=== PATIENT | female | born 1985 | race Caucasian/White ===

== ENCOUNTER 2024-08-19 16:12 | Inpatient (IN) | payer OTHER, SELFPAY ==
[2024-08-19] VITALS (13 sets, daily range): BP systolic 102–145; BP diastolic 72–107; BMI 33.3
--- NOTE | 2024-08-19 10:57 | ED.GENMED ---
ED Provider Triage
<Jed Sharma PA-C - Last Filed: 08/19/24 10:58>
-
Patient seen by provider in Triage?: Seen in Triage
Attestation: A medical screening examination has been initiated by a qualified medical provider. Based on the assessment performed at this time, it has been determined that an emergent medical condition may exist and the patient has been informed
that further medical evaluation and possible additional diagnostic testing may be needed.
HPI: 38-year-old female with known gallstones presents with 5 days worth of right upper quadrant pain rating to the back. This has been fairly constant over 5 days. No vomiting at triage. Vital signs are stable. Routine labs including lipase
ordered. Ultrasound ordered
GENERAL: Alert , in no apparent distress
EYE: No visual abnormalities.
NECK: Trachea midline
ENT: No visible abnormalities.
LUNGS: No acute respiratory distress
NEUROLOGICAL: Alert and oriented
SKIN: Skin intact. No visible changes.
MUSCULOSKELETAL: Moving extremities normally
PSYCH: Normal and appropriate interaction.
This is a medical evaluation conducted in person to initiate diagnostic evaluation and provide initial therapeutics. Please see further documentation by the treating clinician.
History of Present Illness
<Jed Sharma PA-C - Last Filed: 08/19/24 10:58>
General
Chief Complaint: Abdominal Pain
Time Seen by Provider: 08/19/24 13:05
<Bipin Luciano PA-C - Last Filed: 08/19/24 15:21>
General
Source: patient
History of Present Illness
History of Present Illness:
38-year-old female presenting to the emergency department for evaluation of waxing and waning right upper quadrant abdominal pain for the last 5 days, since 9 30 p.m. last night pain has been constant, sharp, and accompanied with mild nausea.
Patient does have a known history of gallstones and has been managing symptoms with low-fat diet. She does note for dinner last night she had some shrimp dumplings. She denies any fevers, chills, rigors. Pain currently 8 out of 10 and radiating
towards the right scapular region.
Past History
<Jed Sharma PA-C - Last Filed: 08/19/24 10:58>
Past History
ED Past Medical History: None
ED Past Surgical History: None
Social History
Tobacco: Non-smoker
Alcohol: None
Drug: None
Personal:
Living: with family
Employment: Employed
Family History
Family History: Other (Noncontributory)
Review of Systems
<Bipin Luciano PA-C - Last Filed: 08/19/24 15:21>
Review of Systems
All Other Systems: ROS reviewed and negative except as documented in HPI and ROS
Phy Exam
<Bipin Luciano PA-C - Last Filed: 08/19/24 15:21>
Physical Exam
Physical Exam:
GENERAL: Alert , in no apparent distress
EYE: Mildly icteric sclera
HEAD: NCAT
ENT: o/p clr, mmm.
CARDIAC: Regular rate and rhythm .
LUNGS: Clear breath sounds bilaterally, no acute respiratory distress, no wheezes/rales/rhonchi
ABDOMEN: Soft, RUQ tenderness to palpation, no r/g, no cvat, positive Herrmann sign, no tenderness at McBurney's point
NEUROLOGICAL: Alert and oriented
SKIN: Warm and dry, skin intact.
MUSCULOSKELETAL: No edema, well perfused.
PSYCH: Normal and appropriate interaction.
Scores
<Bipin Luciano PA-C - Last Filed: 08/19/24 15:21>
Heart Failure Risk
Heart Failure Risk Score: Not Applicable
Heart Score for Chest Pain Patients
STEMI patient?: Not applicable
Withdrawal Assessment of Alcohol
Withdrawal Assessment Completed?: Not applicable
Course
<Jed Sharma PA-C - Last Filed: 08/19/24 10:58>
Orders/Labs/Results
Orders:
Orders
08/19/24 10:57
US Abdomen Complete/Upper Urgent
Comment:
Reason For Exam: ruq pain
08/19/24 10:58
Test Result ONCE
08/19/24 11:04
Complete Blood Count/With Diff Urgent
Comprehensive Metabolic Panel Urgent
HCG, Serum Qualitative Screen Urgent
Lipase Urgent
08/19/24 13:23
Morphine Sulfate 4 mg IV NOW STA
Ondansetron Injectable [Zofran] 4 mg IV NOW STA
08/19/24 14:35
Lorazepam [Ativan] 0.5 mg IV NOW STA
08/19/24 14:40
Admit/Transfer Patient As Directed
Co-Sign Provider:
Level of Care: Inpatient admission
Assign to:: Medical/Surgical
Physician / Group: Rhona Alvarez
Diagnosis: Acute cholecystitis, Common bile duct dilatation
Reason for Hospitalization: Acute cholecystitis
Common bile duct dilatation
Expected length of stay greater than two midnights?: Yes
ELOS- Estimated Length of Stay in days: 3
I certify the patient meets the requirements for IP care: Yes
Code Status As Directed
Resuscitation Status: Full Code
0.9% Sodium Chloride [Nss (Preservative Free)] 0.25 ml IV ONCE@1440 ONE
PRN Pain Medication Management As Directed
May give lesser potent ordered pain med per pt: Yes
preference::
Protocol:: Medication orders for pain may be administered in a
manner that supports deferring to patient preference
when the pt is:
- Requesting an ordered lesser potent pain medication.
Least to most potent pain medications are defined
as: acetaminophen < NSAID < tramadol < opioids
(morphine, oxycodone, hydromorphone).
- Requesting a lesser dose of the same medication IF
ORDERED.
- Requesting a less intrusive route of administration
if both routes are prescribed by the provider (PO <
IV).
Abnormal Lab Results
08/19/24
11:04
WBC 4.6 L 10^3/uL
(4.8-10.8)
MCH 26.4 L pg
(27.0-31.0)
MCHC 32.6 L g/dL
(33.0-37.0)
MPV 11.2 H fL
(7.4-10.4)
Absolute Lymphs (auto) 1.1 L 10^3/uL
(1.2-3.4)
Monocytes % 9.6 H %
(1.7-9.3)
Glucose 110 H mg/dl
(70-99)
Total Bilirubin 4.2 H mg/dl
(0.2-1.3)
AST 141 H U/L
(14-36)
ALT 719 H* U/L
(0-35)
Alkaline Phosphatase 227 H U/L
(38-126)
08/19/24 11:04
08/19/24 11:04
Vital Signs
Initial and Last Documented VS:
Initial Vital Signs
Temp Pulse Resp BP Pulse Ox
97.8 F 98 18 141/107 98
08/19/24 10:54 08/19/24 10:54 08/19/24 10:54 08/19/24 10:54 08/19/24 10:54
Last Documented Vital Signs
Temp Pulse Resp BP Pulse Ox
97.8 F 86 16 124/83 98
08/19/24 10:54 08/19/24 12:54 08/19/24 12:54 08/19/24 12:54 08/19/24 12:54
<Bipin Luciano PA-C - Last Filed: 08/19/24 15:21>
Orders/Labs/Results
Orders:
Orders
08/19/24 10:57
US Abdomen Complete/Upper Urgent
Comment:
Reason For Exam: ruq pain
08/19/24 10:58
Test Result ONCE
08/19/24 11:04
Complete Blood Count/With Diff Urgent
Comprehensive Metabolic Panel Urgent
HCG, Serum Qualitative Screen Urgent
Lipase Urgent
08/19/24 13:23
Morphine Sulfate 4 mg IV NOW STA
Ondansetron Injectable [Zofran] 4 mg IV NOW STA
08/19/24 14:35
Lorazepam [Ativan] 0.5 mg IV NOW STA
08/19/24 14:40
Admit/Transfer Patient As Directed
Co-Sign Provider:
Level of Care: Inpatient admission
Assign to:: Medical/Surgical
Physician / Group: Rhona Alvarez
Diagnosis: Acute cholecystitis, Common bile duct dilatation
Reason for Hospitalization: Acute cholecystitis
Common bile duct dilatation
Expected length of stay greater than two midnights?: Yes
ELOS- Estimated Length of Stay in days: 3
I certify the patient meets the requirements for IP care: Yes
Code Status As Directed
Resuscitation Status: Full Code
0.9% Sodium Chloride [Nss (Preservative Free)] 0.25 ml IV ONCE@1440 ONE
PRN Pain Medication Management As Directed
May give lesser potent ordered pain med per pt: Yes
preference::
Protocol:: Medication orders for pain may be administered in a
manner that supports deferring to patient preference
when the pt is:
- Requesting an ordered lesser potent pain medication.
Least to most potent pain medications are defined
as: acetaminophen < NSAID < tramadol < opioids
(morphine, oxycodone, hydromorphone).
- Requesting a lesser dose of the same medication IF
ORDERED.
- Requesting a less intrusive route of administration
if both routes are prescribed by the provider (PO <
IV).
Abnormal Lab Results
08/19/24
11:04
WBC 4.6 L 10^3/uL
(4.8-10.8)
MCH 26.4 L pg
(27.0-31.0)
MCHC 32.6 L g/dL
(33.0-37.0)
MPV 11.2 H fL
(7.4-10.4)
Absolute Lymphs (auto) 1.1 L 10^3/uL
(1.2-3.4)
Monocytes % 9.6 H %
(1.7-9.3)
Glucose 110 H mg/dl
(70-99)
Total Bilirubin 4.2 H mg/dl
(0.2-1.3)
AST 141 H U/L
(14-36)
ALT 719 H* U/L
(0-35)
Alkaline Phosphatase 227 H U/L
(38-126)
08/19/24 11:04
08/19/24 11:04
Vital Signs
Initial and Last Documented VS:
Initial Vital Signs
Temp Pulse Resp BP Pulse Ox
97.8 F 98 18 141/107 98
08/19/24 10:54 08/19/24 10:54 08/19/24 10:54 08/19/24 10:54 08/19/24 10:54
Last Documented Vital Signs
Temp Pulse Resp BP Pulse Ox
97.8 F 86 16 124/83 98
08/19/24 10:54 08/19/24 12:54 08/19/24 12:54 08/19/24 12:54 08/19/24 12:54
<Bipin Luciano PA-C - Last Filed: 08/19/24 15:21>
MDM/Problems Addressed
Differential Diagnosis Includes:
Acute cholecystitis, pancreatitis, choledocholithiasis, ascending cholangitis, atypical ACS presentation we
MDM/Problems Addressed:
38-year-old female presenting to the ER for evaluation of waxing waning right upper quadrant abdominal pain for the last 5 days, symptoms constant since 9:30 PM last night. Labs and ultrasound imaging initially ordered in triage. Labs show a total
bilirubin of 4.2, AST of 141, ALT of 709, alkaline phosphatase 227. Patient's ultrasound shows cholelithiasis without evidence for acute cholecystitis. Mild dilatation of the common bile duct as well. I notified general surgery who requests that
GI be made aware as well as patient will likely need MRI of the abdomen. Hospitalist team to admit.
<Bipin Luciano PA-C - Last Filed: 08/19/24 15:21>
*Radiology
Radiology exam reviewed: radiology read reviewed
*Pulse Oximetry
Patient hypoxic: no
*Critical Care Note
Total Time (30-74mins, 75-104mins- exclusive of procedures): Not Applicable
<Bipin Luciano PA-C - Last Filed: 08/19/24 15:21>
Patient Management
Discussion with other providers: Hospitalist and Destination Coordinator
Escalation/DeEscalation of care consider admission/obs:
Hospitalist team to admit. GI and general surgery consult.
ED Attending Note
<Jed Sharma PA-C - Last Filed: 08/19/24 10:58>
-
Portions of this chart may have been created with voice recognition software.� Occasional wrong word or��sound alike� substitutions may have occurred due to the inherent limitations of voice recognition software.
Discharge Plan
Departure
Patient Disposition: Admit
Date of Disposition: 08/19/24
Time of Disposition: 13:31
Presentation/result/management discussed w/ accepting MD/DO: Hospitalist
Discharge Problem:
Acute cholecystitis, Common bile duct dilatation
Prescriptions:
No Action
No Current Medications
0
Interventions
Interventions:
*Risk Screen - Suicide Last Done: 08/19/24 10:54
*General Assessment Last Done: 08/19/24 10:54
*Neglect/Abuse Screening Last Done: 08/19/24 10:54
*ED COVID-19 Vaccine History Last Done: 08/19/24 13:36
BO-Miikkt-Kfcjigsryx Assessment Last Done: 08/19/24 13:36
Discharge Date and Time
Print Language: TAMAZIGHT
[2024-08-19 11:24] LABS: % Basophils 0.7 % (0-2); % Eosinophils 3.1 % (0-6); % Immature Granulocytes 0.4 % (0-0.5); % Lymphocytes 23.5 % (20.5-51.1); % Monocytes 9.6 % (1.7-9.3); % Neutrophils 62.7 % (42.2-75.2); Absolute Eosinophils 0.1 10^3/uL (0-0.7); Absolute Lymphocytes 1.1 10^3/uL (1.2-3.4); Absolute Monocytes 0.4 10^3/uL (0.1-0.6); Absolute Neutrophils 2.9 10^3/uL (1.4-6.5); Hemoglobin 12.7 g/dL (12.0-16.0); Mean Corp Hgb Conc. 32.6 g/dL (33.0-37.0); Mean Corpuscular Hgb 26.4 pg (27.0-31.0); Mean Corpuscular Volume 81.1 fL (81.0-99.0); Mean Platelet Volume 11.2 fL (7.4-10.4); Nucleated Red Blood Cells % 0 %; Platelet Count 255 10^3/uL (130-400); Red Blood Cell Count 4.81 10^6/uL (4.20-5.40); White Blood Cell Count 4.6 10^3/uL (4.8-10.8)
[2024-08-19 11:36] LABS: HCG, Serum Qualitative Screen Negative
[2024-08-19 11:43] LABS: ALT (SGPT) 719 U/L (0-35); AST (SGOT) 141 U/L (14-36); Albumin 4.6 g/dl (3.5-5.0); Alkaline Phosphatase 227 U/L (38-126); Blood Urea Nitrogen 8 mg/dl (7-17); Calcium 10.2 mg/dl (8.4-10.2); Carbon Dioxide 25 mmol/L (22-30); Chloride 102 mmol/L (98-107); Glucose 110 mg/dl (70-99); Lipase 130 U/L (23-300); Potassium 4.4 mmol/L (3.5-5.1); Sodium 135 mmol/L (135-145); Total Bilirubin 4.2 mg/dl (0.2-1.3); Total Protein 7.5 g/dl (6.3-8.2); eGFR > 60.00
[2024-08-19] MEDS: MORPHINE SULFATE 4 MG IV (13:32)
[2024-08-19] MEDS: ZOFRAN 4 MG IV ×2 (13:32→19:45)
--- NOTE | 2024-08-19 14:04 | CON.GI ---
Consultation
-
Date/Time Consultation Requested: 08/19/24
Date/Time Consultation Performed: 08/19/24
Requesting Provider: Dr. Alvarez
Performing Provider: Dr. Barton
Reason for Consultation: Elevated LFTs, RUQ abdominal pain
Medical History
Chief Complaint / HPI
Chief Complaint: RUQ Abdominal Pain
History of Present Illness:
Griselda Sanchez is a 38-year-old female with past medical history of symptomatic cholelithiasis who presents with 5 days of worsening right upper quadrant pain with radiation to her back. She endorses nausea, no vomiting. Labs on arrival shows
significant elevation in liver enzymes, total bilirubin 4.2, AST 141, ALT 719, alkaline phosphatase 227, lipase 130. Vital signs stable, she is afebrile without leukocytosis. Abdominal US shows dilated CBD of 10 mm, no sonographic evidence of
filling defect, physiologically distended gallbladder with fluid and multiple small calculi and biliary sludge in lumen, no GB wall thickening or pericholecystic fluid; negative murphys sign. Of note, she was seen in the ER with similar complaints
in May 2021, at which time abdominal ultrasound showed cholelithiasis without evidence of cholecystitis, biliary ductal dilatation or fatty liver, she had a mild elevation in ALT at that time of 41. She was seen by Dr. Romero who recommended
proceeding with cholecystectomy however patient decided to proceed with conservative management deferring surgery at that time. She reports about 5 similar episodes since that time, but never sought care as each episode typically resolved within an
hour. She reports having a prior EGD many years ago, thinks she had some gastritis, no prior colonoscopy. Family history significant for grandfather with colon cancer, grandmother with cirrhosis 2/2 hepatitis contracted via blood transfusion. No
NSAIDS or blood thinners. Reports former tobacco use-- 10 pack years, quit 17 years ago.
Abdominal US 08/19/24:
1. Cholelithiasis. No findings at sonography highly suspicious for acute cholecystitis.
2. Mild dilation of the common bile duct, indeterminate etiology.
3. Left nephrolithiasis with approximately 1.5 cm calculus at the left renal pelvis. No hydronephrosis.
Past Medical History
Past Medical History: Other (seasonal allergies, cholelithiasis, elevated liver enzymes)
Past Surgical History: None
Social History
Tobacco: Former Smoker (10 pack years, quit 17 years ago)
Alcohol: None
Drug: None
Personal:
Family History
Family History: Other (Mother and grandmother both had gallbladder issues requiring cholecystectomy )
Allergies / Home Medications
Allergy/AdvReac Type Severity Reaction Status Date / Time
clarithromycin [From Biaxin] Allergy Rash Verified 08/19/24 10:53
Penicillins Allergy Rash Verified 08/19/24 10:53
�Medication �Instructions �Recorded
Claritin-D 24 Hour 1 tab PO DAILY 05/01/17
levofloxacin 500 mg tablet 500 mg PO DAILY #3 tabs 05/02/17
metoclopramide HCl 5 mg tablet 5 mg PO AC nausea #10 tabs 05/02/17
omeprazole magnesium 20 mg 20 mg PO DAILY ##20 06/06/21
tablet,delayed release (Prilosec
OTC)
ondansetron 4 mg disintegrating 4 mg PO TIDPRN PRN nausea/vomiting 06/06/21
tablet #10 tabs
Review of Systems
-
History Source: Patient
Vital Signs
Temp Pulse Resp BP Pulse Ox
97.8 F 86 16 124/83 98
08/19/24 10:54 08/19/24 12:54 08/19/24 12:54 08/19/24 12:54 08/19/24 12:54
Physical Exam
Exam
GENERAL: In no acute distress, appears comfortable
ABDOMEN: +BS; soft, nondistended, very mild tenderness to palpation in epigastrium and RUQ, no rebound or guarding
Results
WBC 4.6 10^3/uL (4.8-10.8) L 08/19/24 11:04
Hgb 12.7 g/dL (12.0-16.0) 08/19/24 11:04
Hct 39.0 % (37.0-47.0) 08/19/24 11:04
MCV 81.1 fL (81.0-99.0) 08/19/24 11:04
Plt Count 255 10^3/uL (130-400) 08/19/24 11:04
Absolute Neuts (auto) 2.9 10^3/uL (1.4-6.5) 08/19/24 11:04
Sodium 135 mmol/L (135-145) 08/19/24 11:04
Potassium 4.4 mmol/L (3.5-5.1) 08/19/24 11:04
Chloride 102 mmol/L (98-107) 08/19/24 11:04
Carbon Dioxide 25 mmol/L (22-30) 08/19/24 11:04
BUN 8 mg/dl (7-17) 08/19/24 11:04
Creatinine 0.7 mg/dL (0.6-1.0) 08/19/24 11:04
Calcium 10.2 mg/dl (8.4-10.2) 08/19/24 11:04
Total Bilirubin 4.2 mg/dl (0.2-1.3) H 08/19/24 11:04
AST 141 U/L (14-36) H 08/19/24 11:04
ALT 719 U/L (0-35) H* 08/19/24 11:04
Alkaline Phosphatase 227 U/L (38-126) H 08/19/24 11:04
Lipase 130 U/L (23-300) 08/19/24 11:04
Diagnostic Image Results:
Prior GI Procedures:
EGD:
Colonoscopy:
Assessment / Plan
-
38 year-old female admitted with 5 days of worsening epigastric/RUQ abdominal pain with radiation to the back found to have significantly elevated liver enzymes and CBD dilation on ultrasound, concerning for choledocholithiasis.
#Elevated LFTs
#CBD Dilation
#Cholelithiasis
High pretest probability for choledocholithiasis (CBD dilation, Tbili >4.0) --> recommend proceeding with ERCP today
Discussed case with Dr. Galindo, will plan to perform EUS and if choledocholithiasis is confirmed, will then proceed with ERCP
Surgical eval for cholecystectomy, timing TBD (current admission vs. outpatient)
Analgesia and antiemetics prn
IVF
NPO
Plan discussed with hospitalist, RN, patient, and sister who were all at bedside at time of evaluation.
Data Reviewed
-
Ultrasound: Report Reviewed by me
-
-
Thank you for consultation and allowing me to participate in the patient's care. Please call the international representative GI physician during the after hours with any questions or concerns.
--- NOTE | 2024-08-19 14:05 | HPS.HSE ---
Family Physician
-
Family Physician: Neal Slaughter
Chief Complaint
-
abdominal pain
History of Present Illness
Patient is a 38-year-old female with no significant past medical history who presents to [facility] ED for evaluation of right upper quadrant abdominal pain intermittently for last 5 days. Although patient reports since approximately 2129
last night pain has been consistent and sharp. Patient states pain does radiate to back right scapula area and since last night pain has been associated with nausea. Patient has past history of gallstones with intermittent discomfort since 2015, she
describes symptomatic a few times a year and would resolve on its own. She has followed a low-fat diet to manage. Patient states symptoms last night started after eating shrimp dumplings. She denies any recent sick contact, fever, chills, cough,
shortness of breath, chest pain, vomiting, constipation, diarrhea or urinary symptoms.
Medical History
Past Medical History
Past Medical History: Reports Other
Additional Past Medical History:
gallstones
Past Surgical History: Reports Other
Additional Past Surgical History:
endoscopy
Social History
Tobacco: Former Smoker (quit 17 years ago, has approximately 7.5 pack year history )
Alcohol: Occasional
Drug: None
Personal:
Living: With Family
Employment: Employed
Family History
Family History: Other (Paternally: Liver cancer, DM, CAD, ESRD; Maternally: DM, gallstones, breast ca, ovarian ca)
Allergies / Home Medications
Allergies reflects when Allergies were last updated in [employer].
Home Medications with original date entered in [employer]
Allergy/Medication List:
Allergies
Allergy/AdvReac Type Severity Reaction Status Date / Time
clarithromycin [From Biaxin] Allergy Rash Verified 08/19/24 10:53
Penicillins Allergy Rash Verified 08/19/24 10:53
Review of Systems
-
History Source: Patient
Constitutional: Reports No Symptoms
EENT: Reports No Symptoms
Respiratory: Reports No Symptoms
Cardiac: Reports No Symptoms
Abdomen/GI: Reports Abdominal Pain (radiates to back right scapula area ) and Nausea
: Reports No Symptoms
Musculoskeletal: Reports No Symptoms
Skin: Reports No Symptoms
Neurological: Reports No Symptoms
Endocrine: Reports No Symptoms
Hematologic/Lymphatic: Reports No Symptoms
Psych: Reports No Symptoms
Physical Exam
Vital Signs
Vital Signs
Temp Pulse Resp BP Pulse Ox
97.8 F 86 16 124/83 98
08/19/24 10:54 08/19/24 12:54 08/19/24 12:54 08/19/24 12:54 08/19/24 12:54
Physical Exam
General: Well Developed, Well Nourished, No Apparent Distress, Conversant and Pain
HEENT: NormoCephalic, Moist mucous membranes, Atraumatic, [place] Conjunctivae, Nose Appears Normal and Ears Appear Normal
Respiratory: Clear
Cardiac: S1/S2 and Regular Rhythm; No Murmur, Rub or Gallop
Breast: Deferred by me
GI: Soft, Non Distended, Normal Bowel Sounds and Tender; No Organomegaly
Rectal: Deferred by Provider
Genito-urinary: Deferred by me
Musculoskeletal: No Clubbing, No Cyanosis and No Edema
Skin: Warm and IV/Catheter Site; No Rash
Neuro: Awake, Alert, AO x 3 and Nonfocal/grossly intact
Psych: Intact Judgment/Insight and Anxious
Laboratory Results
-
08/19/24 11:04
08/19/24 11:04
Laboratory Results
Total Bilirubin 4.2 mg/dl (0.2-1.3) H 08/19/24 11:04
AST 141 U/L (14-36) H 08/19/24 11:04
ALT 719 U/L (0-35) H* 08/19/24 11:04
Alkaline Phosphatase 227 U/L (38-126) H 08/19/24 11:04
Lipase 130 U/L (23-300) 08/19/24 11:04
Data Reviewed
-
Ultrasound: Report Reviewed by me (Abd: 1. Cholelithiasis. No findings at sonography highly suspicious for acute cholecystitis. 2. Mild dilation of the common bile duct, indeterminate etiology. 3. Left nephrolithiasis with approximately 1.5 cm
calculus at the left renal pelvis. No hydronephrosis.)
Lab Data: Labs Reviewed by me (Tot bili 42, AST 141, ALT 719, Alk Phos 227)
Impression/Plan
-
IMPRESSION/PLAN:
#cholelithiasis
Hx gallstones, follows low fat diet at home
Tot bili 42, AST 141, ALT 719, Alk Phos 227
Abd US: 1. Cholelithiasis. No findings at sonography highly suspicious for acute cholecystitis.
2. Mild dilation of the common bile duct, indeterminate etiology.
3. Left nephrolithiasis with approximately 1.5 cm calculus at the left renal pelvis. No hydronephrosis.
- Admit to Med/Surg
- Consult GI
- Consult Surgery
- NPO
- ERCP today
- supportive care
Code status: full code
DVT prophylaxis: SCDs
--- NOTE | 2024-08-19 14:58 | W.PN.UPDATE ---
Update Note
Progress Note Update
This is an addendum to H&P written by Melissa Vanegas on 08/19/2024. Patient seen and examined independently with HELP DESK MANAGER.
38-year-old female past medical history of known gallstones, obesity, seasonal allergies, presenting with 5 days of right upper quadrant pain rating to the shoulder constant for 5 days. No vomiting. No fevers or chills.
Labs show leukopenia, severe transaminitis with bilirubin of 4.2.
Abdominal ultrasound shows cholelithiasis, no findings to suggest acute cholecystitis. There is mild dilatation of the common bile duct. Left nephrolithiasis with 1.5 cm calculus of the left renal pelvis.
Patient with likely choledocholithiasis. N.p.o., GI planning on ERCP today. General surgery consulted.
[2024-08-19] MEDS: NSS (PRESERVATIVE FREE) 0.25 ML IV (15:23)
[2024-08-19] MEDS: ATIVAN 0.5 MG IV (15:23)
--- NOTE | 2024-08-19 16:18 | CON.GS ---
Consultation
-
Requesting Provider: Mustapha
Performing Provider: Janel
Reason for Consultation: Abd pain
Medical History
-
Chief Complaint: Abd pain
History of Present Illness:
38F with acute onset RUQ/epigastric pain that began about 5 days ago after eating baked chicken. Last night around 9PM the pain got worse and has been progressive since that time. Radiation to her back noted. Nausea noted. Denies f/c/v. Denies
changes to stool/urine. She has had this pain intermittent for years and has a known hx of gallstones. Her mother and grandmother also had similar issues and underwent CCY. Her sister is an IM physician who is present today as well as her mom.
Past Medical History
Past Medical History: Reviewed & Noncontributory
Past Surgical History: Reviewed & Noncontributory
Social History
Tobacco: Former Smoker
Alcohol: Occasional
Drug: None
Personal:
Living: With Family
Employment: Employed
Family History
Family History: Other (as per HPI)
Allergies / Home Medications
Allergy/AdvReac Type Severity Reaction Status Date / Time
clarithromycin [From Biaxin] Allergy Rash Verified 08/19/24 10:53
Penicillins Allergy Rash Verified 08/19/24 10:53
�Medication �Instructions �Recorded �Confirmed �Type
No Meds [No Current Medications] 08/19/24 08/19/24 History
Review of Systems
-
A 10 point review of systems was completed, and was negative except as per HPI.
Physical Exam
Vital Signs
Temp Pulse Resp BP Pulse Ox
97.8 F 86 16 111/81 98
08/19/24 10:54 08/19/24 12:54 08/19/24 15:51 08/19/24 15:51 08/19/24 12:54
08/18/24 08/19/24 08/20/24
06:59 06:59 06:59
Actual Weight 94.3 kg
Lab Results
08/19/24 11:04
08/19/24 11:04
WBC 4.6 10^3/uL (4.8-10.8) L 08/19/24 11:04
Hgb 12.7 g/dL (12.0-16.0) 08/19/24 11:04
Hct 39.0 % (37.0-47.0) 08/19/24 11:04
Plt Count 255 10^3/uL (130-400) 08/19/24 11:04
Abs Immat Gran (auto) 0.0 10^3/uL (0-0.05) 08/19/24 11:04
Neutrophils % 62.7 % (42.2-75.2) 08/19/24 11:04
Physical Exam
General: Well Developed, Well Nourished and No Apparent Distress
HEENT: Normocephalic and Anicteric
GI: Soft and Tender (mild ttp to epigastrium and RUQ)
Skin: Warm and Dry
Neuro: AO x 3
Psych: Calm
Data Reviewed
-
Ultrasound: Image Personally Visualized and interpreted, Report Reviewed by me, Discussed with Patient and Discussed with Family
Labs: Labs Reviewed by me, Discussed with Patient and Discussed with Family
Assessment / Plan
-
38F with choledocholithiasis vs biliary colic
AFVSS, mild ttp to epigastrium/RUQ
No leukocytosis, mild leukopenia noted
LFTs elevated, Tbili 4.2
US with gallstones, no PCF, no GBWT, CBD 10mm
Plan:
Per GI plan for EUS/ERCP today
Briefly discussed prophylactic rationale for CCY in this setting. All ?s answered.
Pt amenable to CCY this admit.
NPO@[place]
Will follow
[2024-08-19] MEDS: SUBLIMAZE 50 MCG IV (19:46)
--- NOTE | 2024-08-19 20:20 | PTCARENOTE ---
Pt a 38 y/o F PMH Gallstones, Covid (a few years ago), ex -Smoker (17 years ago). Arrived on 2S from GI lab post Upper Endoscopy Ultrasound with a dx of Cholecystitis, possible surgery tomorrow or Saturday. Pt AOx3, bed in a low position, call light
in reach, pt reports no pain, care ongoing.
[2024-08-20] VITALS (12 sets, daily range): BP systolic 100–143; BP diastolic 59–73; BMI 33.4
[2024-08-20 06:30] LABS: Hemoglobin 11.8 g/dL (12.0-16.0); Mean Corp Hgb Conc. 32.8 g/dL (33.0-37.0); Mean Corpuscular Hgb 26.9 pg (27.0-31.0); Mean Platelet Volume 11.6 fL (7.4-10.4); Platelet Count 228 10^3/uL (130-400); Red Blood Cell Count 4.39 10^6/uL (4.20-5.40); Red Cell Dist. Width 13.8 % (11.5-14.5)
[2024-08-20 06:59] LABS: ALT (SGPT) 632 U/L (0-35); AST (SGOT) 164 U/L (14-36); Albumin 4.3 g/dl (3.5-5.0); Alkaline Phosphatase 205 U/L (38-126); Blood Urea Nitrogen 13 mg/dl (7-17); Calcium 9.5 mg/dl (8.4-10.2); Carbon Dioxide 24 mmol/L (22-30); Chloride 101 mmol/L (98-107); Estimated Creatinine Clearance 119 ml/min; Glucose 93 mg/dl (70-99); Sodium 135 mmol/L (135-145); Total Bilirubin 2.9 mg/dl (0.2-1.3); Total Protein 6.5 g/dl (6.3-8.2); eGFR > 60.00
--- NOTE | 2024-08-20 07:29 | W.PN.GI.CBS2 ---
Today's Communication / Plan
-
CCY per surgery
trend labs
Assessment / Plan
-
38 year-old female admitted with 5 days of worsening epigastric/RUQ abdominal pain with radiation to the back found to have significantly elevated liver enzymes and CBD dilation on ultrasound, concerning for choledocholithiasis.
#Elevated LFTs
#CBD Dilation
#Cholelithiasis
Status post EUS which confirmed CBD stone and then had ERCP with Dr. Galindo 08/18 with sphincterotomy and stone extraction
Also has a PD stent placed and needs repeat KUB in 2 weeks and follow-up with Dr. Galindo in 6 weeks
Bilirubin is trending down and transaminases also mildly decreased pain has resolved
Timing of cholecystectomy per surgery
GI will sign off and will be available as needed
Subjective
Subjective
Date of Service: August 20, 2024
Abdominal pain is markedly improved status post ERCP with sphincterotomy and stone extraction. no n/v/f
Objective
Data Reviewed
Laboratory Data:
Laboratory Results
08/20/24 05:52
08/20/24 05:52
Laboratory Results
Total Bilirubin 2.9 mg/dl (0.2-1.3) H 08/20/24 05:52
AST 164 U/L (14-36) H 08/20/24 05:52
ALT 632 U/L (0-35) H* 08/20/24 05:52
Alkaline Phosphatase 205 U/L (38-126) H 08/20/24 05:52
Lipase 130 U/L (23-300) 08/19/24 11:04
Vital Signs and I&O:
Vital Signs
Temp Pulse Resp BP Pulse Ox
98.3 F 88 16 110/72 96
08/19/24 23:30 08/19/24 23:30 08/19/24 23:30 08/19/24 23:30 08/19/24 23:30
I&O
08/19/24 08/20/24 08/21/24
06:59 06:59 06:59
Intake Total 270 / 270
Balance 270 / 270
08/19/24 EUS
Impression: - There was dilation in the common bile duct which
measured up to 8 mm.
- Hyperechoic material consistent with sludge was
visualized endosonographically in the common bile duct
and in the gallbladder body.
- Echogenic material suspicious for stone was
visualized endosonographically in the common bile duct.
- Multiple stones were visualized endosonographically
in the gallbladder body.
- There was no sign of significant pathology in the
pancreatic head, genu of the pancreas, pancreatic body
and pancreatic tail.
- There was no sign of significant pathology in the
ampulla.
- There was no evidence of significant pathology in
the left lobe of the liver.
- No specimens collected.
08/19/24 ERCP
Impression: - A filling defect consistent with a stone was seen on
the cholangiogram.
- The common bile duct was mildly dilated.
- Choledocholithiasis was found. Complete removal was
accomplished by biliary sphincterotomy and balloon
extraction.
- A pancreatic sphincterotomy was performed.
- A biliary sphincterotomy was performed.
- The biliary tree was swept and sludge was found.
- One plastic stent was placed into the ventral
pancreatic duct.
Physical Exam
Physical Exam
Cardiology: Normal Sinus Rhythm
Pulmonary: Clear
GI: Soft, Non Distended, Non Tender and Normal Bowel Sounds
--- NOTE | 2024-08-20 09:41 | W.PN.GS2 ---
Addendum entered and electronically signed by Alpesh Swanson MD 08/20/24 10:37:
Patient seen and examined with surgical TREE AND SHRUB WORKER this a.m.
Feeling well post ERCP. Presenting abdominal pains resolved.
AFVSS
ABD: Soft, nondistended, nontender on palpation
A/P: 38-year-old female presenting with choledocholithiasis with cholelithiasis as well. Now postprocedure day #1 status post ERCP
Discussed with patient indications for cholecystectomy. Patient preference is to proceed with surgery at index hospitalization.
Added onto the OR schedule for today.
Laparoscopic cholecystectomy possible cholangiogram was reviewed in detail the patient including the operative technique, potential operative findings and the management, alternative treatment options, benefits and risk such as but not limited to
bleeding, infectious and wound related complications, iatrogenic injury to surrounding viscera, bile duct injury, bile leak, postcholecystectomy fatty food intolerances. We discussed the typical postoperative recovery and care. Any of the
patient's concerns or questions were fully addressed and informed consent was obtained.
Original Note:
Today's Communication / Plan
-
NPO for OR
Assessment / Plan
-
38 yo female presenting with choledocholithiasis now PPD #1 ERCP with sphincterotomy and stone removal, PD stent placed
LFT's trending down post procedure
Pain resolved
AFVSS
--NPO for OR today for laparoscopic cholecystectomy
--GI following
--Diet advancement post op
Subjective Data
-
Date of Service: August 20, 2024
Patient seen and examined at bedside with Dr. Swanson. Denies n/v. Pain resolved.
Objective Data
-
Intake and Output
08/19/24 08/20/24 08/21/24
06:59 06:59 06:59
Intake Total 270 / 270
Balance 270 / 270
Intake:
Oral fluids 120 / 120
IV fluids (Total) 150 / 150
Normosol 150 / 150
Other:
Number of approximated MODERATE 2
amounts of urine
Vital Signs
Temp Pulse Resp BP Pulse Ox
98.3 F 78 18 110/60 97
08/20/24 07:55 08/20/24 07:55 08/20/24 07:55 08/20/24 07:55 08/20/24 07:55
Lab Results
08/20/24 05:52
08/20/24 05:52
Calcium 9.5 mg/dl (8.4-10.2) 08/20/24 05:52
Total Bilirubin 2.9 mg/dl (0.2-1.3) H 08/20/24 05:52
AST 164 U/L (14-36) H 08/20/24 05:52
ALT 632 U/L (0-35) H* 08/20/24 05:52
Alkaline Phosphatase 205 U/L (38-126) H 08/20/24 05:52
Total Protein 6.5 g/dl (6.3-8.2) 08/20/24 05:52
Albumin 4.3 g/dl (3.5-5.0) 08/20/24 05:52
Physical Exam
-
NAD
ABD soft, nt, nd
[2024-08-20] MEDS: LR 1000 IV ×2 (10:06→18:00)
--- NOTE | 2024-08-20 11:56 | W.PN.HOSP.TC ---
Today's Communication/Plan
-
N.p.o.
Start IV fluid
Cholecystectomy later today
Pain control
Postop diet per surgery
Assessment / Plan
Assessment / Plan
#Transaminitis secondary to choledocholithiasis with cholelithiasis
#Gallstone
#Hyperbilirubinemia
Improvement in LFTs
Status post ERCP with positive CBD stone status post enterotomy and stone extraction status post PD stent placement
Start patient on IV fluids
N.p.o.
General Surgery following with plan for cholecystectomy later today
Continue to trend CMP
Pain control
Bilirubin downtrending
DVT prophylaxis SCDs. Start chemical prophylaxis if with increase in hospitalization
Discussed with surgery
Anticipated Discharge: > 48 hours
Subjective/Interval History
-
Date of Service: August 20, 2024
Denies abdominal pain
States feeling significantly better post ERCP
Denies nausea or vomiting
Objective Data
-
Labs:
Laboratory Results
08/20/24
05:52
WBC 4.0 L
Hgb 11.8 L
Hct 36.0 L
Plt Count 228
Sodium 135
Potassium 4.0
Chloride 101
Carbon Dioxide 24
BUN 13
Creatinine 0.7
Glucose 93
Calcium 9.5
Total Bilirubin 2.9 H
AST 164 H
ALT 632 H*
Alkaline Phosphatase 205 H
Vital Signs:
Vital Signs
Temp Pulse Resp BP Pulse Ox
98.3 F 78 18 110/60 97
08/20/24 07:55 08/20/24 07:55 08/20/24 07:55 08/20/24 07:55 08/20/24 07:55
I&O
08/19/24 08/20/24 08/21/24
06:59 06:59 06:59
Intake Total 270 / 270
Balance 270 / 270
Physical Exam
-
General: Well Developed and No Apparent Distress
HEENT: Normocephalic, Atraumatic and Moist Mucous Membranes
Respiratory: Clear to Auscultation
Cardiac: Regular Rhythm and S1/S2; Negative Murmur, Rub or Gallop
GI: Soft, Nontender, Nondistended and Normal Bowel Sounds; Negative Organomegaly
Rectal: Deferred by Provider
Musculoskeletal: No Clubbing, No Cyanosis and No Edema
Skin: Negative Rash
Neuro: Awake, Alert, Oriented, AO x 3, No Motor Deficits and Nonfocal/Grossly Intact
Psych: Calm
--- NOTE | 2024-08-20 12:57 | CM ---
Reviewed the chart notes and spoke with the patient and her spouse at the bedside. The patient resides with her spouse, son, and three daughters in a two story home with one step to enter. The patient reports no DME/VN/SNF in the past. The
patient confirmed her pharmacy is [facility]. CM continues to be available to patient/family and is monitoring medical plan for needs at discharge.
Plan: Discharge to home when medically stable. No needs anticipated.
--- NOTE | 2024-08-20 15:22 | W.SUR.PREOP ---
Pre-Operative Surgical Note
-
I have examined this patient prior to the performance of the scheduled procedure.
The patient's condition is unchanged from the time of the current History and
Physical and the patient is able to undergo the scheduled procedure.
--- NOTE | 2024-08-20 16:55 | W.IMMPOSTOP ---
Addendum entered and electronically signed by Alpesh Swanson MD 08/20/24 19:27:
#[id number]
Original Note:
Surgical Immed Post Op Note
-
Primary Surgeon: Alpesh Swanson MD
Assisting Surgeon: Jovana LOU
Mica Ann NP [employer] TR[employer] OPERATOR-s
Pre-op Diagnosis: Choledocholithiasis, cholelithiasis
Post-op Diagnosis: Choledocholithiasis, cholelithiasis
Procedure Performed: Laparoscopic cholecystectomy
Anesthesia Type: GETA +0.25% Marcaine
Specimen / Cultures: gallbladder
Estimated Blood Loss: 6 mL
Complications: None immediate
Operative Findings: Physiologically distended gallbladder. Filmy omental adhesions.
Cystic duct expectedly dilated controlled with a single clip and Endoloop proximally. The cystic artery controlled with hemoclips. Posterior cystic artery branch controlled with hemoclips. Gallbladder removed off the liver bed intact and
extracted at epigastric port site.
Advance diet as tolerated postoperatively, routine postoperative care.
[2024-08-20] MEDS: ZOFRAN 4 MG IV (17:15)
[2024-08-20] MEDS: DILAUDID 0.5 MG IV ×2 (17:23→17:36)
[2024-08-20] MEDS: DILAUDID 0.25 MG IV (18:06)
--- NOTE | 2024-08-20 18:35 | PTCARENOTE ---
Patient returned from the PACU at 1800 post laparoscopic cholecystectomy.Patient is alert and oriented.She reports her pain at a 4 out of 10.All incisions look good without any drainage.Vital signs are stable.The patient is in her bed with the call
miranda in reach.Her mother is at the bedside.
[2024-08-20] MEDS: TORADOL 10 MG IV (22:16)
[2024-08-20] MEDS: MORPHINE SULFATE 2 MG IV (23:26)
[2024-08-21 03:15] VITALS: BP 118/70
[2024-08-21] MEDS: MORPHINE SULFATE 2 MG IV (04:22)
[2024-08-21] MEDS: TYLENOL 650 MG PO (06:24)
[2024-08-21] MEDS: LR 1000 IV ×2 (06:25→18:43)
[2024-08-21] MEDS: TORADOL 10 MG IV ×2 (06:33→15:40)
[2024-08-21 07:51] LABS: % Basophils 0.2 % (0-2); % Eosinophils 0.8 % (0-6); % Immature Granulocytes 0.5 % (0-0.5); % Lymphocytes 16.9 % (20.5-51.1); % Neutrophils 74.6 % (42.2-75.2); Absolute Eosinophils 0.1 10^3/uL (0-0.7); Absolute Lymphocytes 1.5 10^3/uL (1.2-3.4); Absolute Monocytes 0.6 10^3/uL (0.1-0.6); Absolute Neutrophils 6.4 10^3/uL (1.4-6.5); Hematocrit 35.8 % (37.0-47.0); Hemoglobin 11.4 g/dL (12.0-16.0); Mean Corp Hgb Conc. 31.8 g/dL (33.0-37.0); Mean Corpuscular Hgb 26.6 pg (27.0-31.0); Mean Corpuscular Volume 83.6 fL (81.0-99.0); Mean Platelet Volume 11.4 fL (7.4-10.4); Nucleated Red Blood Cells % 0 %; Platelet Count 247 10^3/uL (130-400); Red Blood Cell Count 4.28 10^6/uL (4.20-5.40); Red Cell Dist. Width 14.5 % (11.5-14.5); White Blood Cell Count 8.6 10^3/uL (4.8-10.8)
[2024-08-21 08:11] VITALS: BP 127/88
[2024-08-21 08:47] LABS: ALT (SGPT) 726 U/L (0-35); AST (SGOT) 258 U/L (14-36); Albumin 3.8 g/dl (3.5-5.0); Alkaline Phosphatase 190 U/L (38-126); Blood Urea Nitrogen 12 mg/dl (7-17); Calcium 9.1 mg/dl (8.4-10.2); Carbon Dioxide 24 mmol/L (22-30); Chloride 102 mmol/L (98-107); Estimated Creatinine Clearance 119 ml/min; Glucose 94 mg/dl (70-99); Sodium 136 mmol/L (135-145); Total Protein 6.4 g/dl (6.3-8.2); eGFR > 60.00
--- NOTE | 2024-08-21 08:54 | W.PN.GS2 ---
Addendum entered and electronically signed by Alpesh Swanson MD 08/21/24 15:08:
Patient seen and examined this afternoon with surgical BULLET MAKER in follow-up agree with documented progress note with additions noted here.
Reports rather significant pain isolated to her epigastric surgical site. Remaining abdomen without significant tenderness or pain.
Significant nausea after oxycodone otherwise was not experiencing much nausea earlier
AFVSS
NAD but uncomfortable appearing. AAOx3
ABD: Soft, nondistended, very minimal tenderness at 5 mm laparoscopic sites at left abdomen. Localizing guarding at the epigastric incision site. There is no visible hematoma or ecchymosis. Incision with glue dressings.
A/P: POD #1 status post lap esdras -ERCP sphincterotomy stone removal PD stent placement preop for choledocholithiasis as well
Advised patient and her sister via phone call that postoperative pain appears to be localized to the epigastric gallbladder extraction site. This is likely reflective of transfascial sutures to close the incision site as her pain is very localized
and not diffuse in nature with stable vital signs, stable hemoglobin, normal white blood cell count, lipase normal. Bilirubin improvement. Slight bump in LFTs is likely reflective of surgery yesterday.
Continue current supportive care. Diet as tolerated.
Reassurance given to patient that suspect postoperative pain related to incision site/muscle.
Would be stable for discharge from surgical standpoint with pain controlled and ambulating comfortably.
Original Note:
Today's Communication / Plan
-
Pain control
Assessment / Plan
-
38 yo female presenting with choledocholithiasis
PPD #2 ERCP with sphincterotomy and stone removal, PD stent placed
POD #1 Lap esdras
Bilirubin continues to trend down, transaminitis present
AFVSS
C/O significant pain/indigestion this am
--Add on lipase level
--Diet as tolerated
--Analgesics prn, multimodal analgesia
Subjective Data
-
Date of Service: August 21, 2024
Patient seen and examined at bedside with primary RN. Has not yet had breakfast but c/o indigestion. Denies nausea. Pain to the RUQ which is severe.
Objective Data
-
Intake and Output
08/20/24 08/21/24 08/22/24
06:59 06:59 06:59
Intake Total 270 / 270 1919
Balance 270 / 270 1919
Intake:
Oral fluids 120 / 120 960 / 960
IV fluids (Total) 150 / 150 960 / 960
Normosol 150 / 150
Other:
Number of approximated SMALL 2
amounts of urine
Number of approximated MODERATE 2 2
amounts of urine
Vital Signs
Temp Pulse Resp BP Pulse Ox
98.0 F 84 18 127/88 96
08/21/24 08:11 08/21/24 08:11 08/21/24 08:11 08/21/24 08:11 08/21/24 08:11
Lab Results
08/21/24 06:25
08/21/24 06:25
Calcium 9.1 mg/dl (8.4-10.2) 08/21/24 06:25
Total Bilirubin 2.0 mg/dl (0.2-1.3) H 08/21/24 06:25
AST 258 U/L (14-36) H 08/21/24 06:25
ALT 726 U/L (0-35) H* 08/21/24 06:25
Alkaline Phosphatase 190 U/L (38-126) H 08/21/24 06:25
Total Protein 6.4 g/dl (6.3-8.2) 08/21/24 06:25
Albumin 3.8 g/dl (3.5-5.0) 08/21/24 06:25
Physical Exam
-
NAD
ABD soft, nt, tender to RUQ
Incisions well approximated with intact glue
[2024-08-21 08:58] LABS: Potassium 3.8 mmol/L (3.5-5.1)
[2024-08-21] MEDS: PEPCID 40 MG PO (09:30)
[2024-08-21] MEDS: ROXICODONE 5 MG PO (09:34)
[2024-08-21 09:35] LABS: Lipase 92 U/L (23-300)
--- NOTE | 2024-08-21 10:11 | CM ---
Reviewed the chart notes. Patient's spouse at the bedside. Spouse will provide transportation home when discharged. Patient on low fat diet. CM continues to be available to patient/family and is monitoring medical plan for needs at discharge.
Plan: Discharge to home with no needs anticipated.
[2024-08-21 10:30] VITALS: BP 136/92
[2024-08-21] MEDS: ZOFRAN 4 MG IV (10:33)
[2024-08-21] MEDS: DILAUDID 0.5 MG IV ×3 (11:27→22:40)
--- NOTE | 2024-08-21 12:19 | W.PN.HOSP.TC ---
Today's Communication/Plan
-
Gentle IV fluids
Monitor for p.o. intake
Pain control
Out of bed
Assessment / Plan
Assessment / Plan
#Transaminitis secondary to choledocholithiasis with cholelithiasis
#Gallstone
#Hyperbilirubinemia
# Post op right upper quadrant abdominal pain.
Improvement in bilirubin. AST ALT elevated.
Status post ERCP with positive CBD stone status post enterotomy and stone extraction status post PD stent placement
Status post laparoscopic cholecystectomy on 08/20. Operative finding of physiologically distended gallbladder. Filmy omental adhesions.
Restarted patient on IV fluids
Started on diet but states of nausea.
Lipase normal at 92.
Continue to trend CMP
Pain control
Continue to monitor for p.o. intake tolerance. Pain control.
Surgery recs.
DVT prophylaxis SCDs. Start chemical prophylaxis if with increase in hospitalization
Discussed with patient spouse at bedside in detail
Also discussed with patient cousin (with medical knowledge) over the phone in detail
Anticipated Discharge: Within 24 hours
Subjective/Interval History
-
Date of Service: August 21, 2024
States of severe right upper quadrant abdominal pain
States of nausea
No vomiting
Objective Data
-
Labs:
Laboratory Results
08/21/24
06:25
WBC 8.6
Hgb 11.4 L
Hct 35.8 L
Plt Count 247
Sodium 136
Potassium 3.8
Chloride 102
Carbon Dioxide 24
BUN 12
Creatinine 0.7
Glucose 94
Calcium 9.1
Total Bilirubin 2.0 H
AST 258 H
ALT 726 H*
Alkaline Phosphatase 190 H
Vital Signs:
Vital Signs
Temp Pulse Resp BP Pulse Ox
99.1 F 93 20 136/92 96
08/21/24 10:30 08/21/24 10:30 08/21/24 10:30 08/21/24 10:30 08/21/24 10:30
I&O
08/20/24 08/21/24 08/22/24
06:59 06:59 06:59
Intake Total 270 / 270 1919
Balance 270 / 270 1919
Physical Exam
-
General: Well Developed and No Apparent Distress
HEENT: Normocephalic, Atraumatic and Moist Mucous Membranes
Respiratory: Clear to Auscultation
Cardiac: Regular Rhythm and S1/S2; Negative Murmur, Rub or Gallop
GI: Soft, Nondistended, Normal Bowel Sounds, Tender (Right upper quadrant) and Other (Surgical glue noted. No erythema or drainage note.); Negative Organomegaly
Rectal: Deferred by Provider
Musculoskeletal: No Clubbing, No Cyanosis and No Edema
Skin: Negative Rash
Neuro: Awake, Alert, Oriented, AO x 3, No Motor Deficits and Nonfocal/Grossly Intact
Psych: Calm
[2024-08-21 15:33] VITALS: BP 127/80
[2024-08-21] MEDS: COMPAZINE 5 MG IV (16:16)
[2024-08-21] MEDS: MYLICON 80 MG PO ×2 (16:34→22:45)
[2024-08-21 23:45] VITALS: BP 121/81
[2024-08-22] MEDS: ULTRAM 50 MG PO ×3 (04:30→18:45)
[2024-08-22] MEDS: LR 1000 IV (04:30)
[2024-08-22 07:40] VITALS: BP 119/81
[2024-08-22 07:49] LABS: % Basophils 0.5 % (0-2); % Eosinophils 2.7 % (0-6); % Immature Granulocytes 0.5 % (0-0.5); % Lymphocytes 21.5 % (20.5-51.1); % Monocytes 7.2 % (1.7-9.3); % Neutrophils 67.6 % (42.2-75.2); Absolute Eosinophils 0.2 10^3/uL (0-0.7); Absolute Lymphocytes 1.3 10^3/uL (1.2-3.4); Absolute Monocytes 0.5 10^3/uL (0.1-0.6); Absolute Neutrophils 4.2 10^3/uL (1.4-6.5); Hematocrit 33.8 % (37.0-47.0); Hemoglobin 10.8 g/dL (12.0-16.0); Mean Corpuscular Hgb 26.2 pg (27.0-31.0); Mean Corpuscular Volume 81.8 fL (81.0-99.0); Mean Platelet Volume 11.2 fL (7.4-10.4); Nucleated Red Blood Cells % 0 %; Platelet Count 223 10^3/uL (130-400); Red Blood Cell Count 4.13 10^6/uL (4.20-5.40); Red Cell Dist. Width 14.8 % (11.5-14.5); White Blood Cell Count 6.2 10^3/uL (4.8-10.8)
[2024-08-22 08:26] LABS: AST (SGOT) 316 U/L (14-36); Albumin 3.7 g/dl (3.5-5.0); Alkaline Phosphatase 163 U/L (38-126); Blood Urea Nitrogen 9 mg/dl (7-17); Calcium 8.9 mg/dl (8.4-10.2); Carbon Dioxide 26 mmol/L (22-30); Chloride 101 mmol/L (98-107); Estimated Creatinine Clearance > 125 ml/min; Glucose 100 mg/dl (70-99); Potassium 3.9 mmol/L (3.5-5.1); Sodium 136 mmol/L (135-145); Total Bilirubin 1.4 mg/dl (0.2-1.3); eGFR > 60.00
[2024-08-22 08:41] LABS: ALT (SGPT) 838 U/L (0-35)
[2024-08-22] MEDS: PEPCID 40 MG PO (08:41)
[2024-08-22] MEDS: MYLICON 80 MG PO (08:44)
[2024-08-22] MEDS: TORADOL 10 MG IV (09:24)
--- NOTE | 2024-08-22 10:27 | W.PN.HOSP.TC ---
Today's Communication/Plan
-
Avoid IV narcs
monitor po tolerance
trend cmp
oob/encourage ambulation
Assessment / Plan
Assessment / Plan
#Transaminitis secondary to choledocholithiasis with cholelithiasis
#Gallstone
#Hyperbilirubinemia
# Post op right upper quadrant abdominal pain.
Improvement in bilirubin. AST ALT elevated.
Status post ERCP with positive CBD stone status post enterotomy and stone extraction status post PD stent placement
Status post laparoscopic cholecystectomy on 08/20. Operative finding of physiologically distended gallbladder. Filmy omental adhesions.
Restarted patient on IV fluids-can be stopped later today
Started on diet but states of nausea.
Lipase normal at 92.
Continue to trend CMP
Pain control
Continue to monitor for p.o. intake tolerance. Pain control.
Surgery recs.
DVT prophylaxis SCDs. Start chemical prophylaxis if with increase in hospitalization
Discussed with patient spouse at bedside in detail on 08/21.
Anticipated Discharge: Within 24 hours
Subjective/Interval History
-
Date of Service: August 22, 2024
remains with abd pain right upper quadrant. No radiation.
no nausea or vomiting
require IV dilaudid
Passing flatulence. Denies any bowel movements last 24 hours.
Appetite slowly improving
Objective Data
-
Labs:
Laboratory Results
08/22/24
06:44
WBC 6.2
Hgb 10.8 L
Hct 33.8 L
Plt Count 223
Sodium 136
Potassium 3.9
Chloride 101
Carbon Dioxide 26
BUN 9
Creatinine 0.6
Glucose 100 H
Calcium 8.9
Total Bilirubin 1.4 H
AST 316 H
ALT 838 H*
Alkaline Phosphatase 163 H
Vital Signs:
Vital Signs
Temp Pulse Resp BP Pulse Ox
98.1 F 92 16 119/81 97
08/22/24 07:40 08/22/24 07:40 08/22/24 07:40 08/22/24 07:40 08/22/24 07:40
I&O
08/21/24 08/22/24 08/23/24
06:59 06:59 06:59
Intake Total 1919
Balance 1919
--- NOTE | 2024-08-22 12:10 | W.PN.GS2 ---
Today's Communication / Plan
-
Dispo planning
Assessment / Plan
-
38 yo female presenting with choledocholithiasis
PPD #3 ERCP with sphincterotomy and stone removal, PD stent placed
POD #2 Lap esdras
Bilirubin continues to trend down, transaminitis present (expected post op)
AFVSS
--Diet as tolerated
--Analgesics prn, multimodal analgesia
--Stable for discharge from surgical standpoint once pain controlled/ambulating
Subjective Data
-
Date of Service: August 22, 2024
Patient seen and examined at bedside. Having some difficulty with pain control still but much improved from yesterday. Nausea resolved, tolerating diet.
Objective Data
-
Intake and Output
08/21/24 08/22/24 08/23/24
06:59 06:59 06:59
Intake Total 1920 / 1920 2160 / 2160
Balance 1920 / 1920 2160 / 2160
Intake:
Oral fluids 960 / 960 1200 / 1200
IV fluids (Total) 960 / 960 960 / 960
Other:
Number of approximated SMALL 2
amounts of urine
Number of approximated MODERATE 2 2
amounts of urine
Vital Signs
Temp Pulse Resp BP Pulse Ox
98.1 F 92 16 119/81 97
08/22/24 07:40 08/22/24 07:40 08/22/24 07:40 08/22/24 07:40 08/22/24 07:40
Lab Results
08/22/24 06:44
08/22/24 06:44
Calcium 8.9 mg/dl (8.4-10.2) 08/22/24 06:44
Total Bilirubin 1.4 mg/dl (0.2-1.3) H 08/22/24 06:44
AST 316 U/L (14-36) H 08/22/24 06:44
ALT 838 U/L (0-35) H* 08/22/24 06:44
Alkaline Phosphatase 163 U/L (38-126) H 08/22/24 06:44
Total Protein 6.0 g/dl (6.3-8.2) L 08/22/24 06:44
Albumin 3.7 g/dl (3.5-5.0) 08/22/24 06:44
Physical Exam
-
NAD
ABD soft, nt, tender to RUQ
Incisions well approximated with intact glue
[2024-08-22 15:35] VITALS: BP 106/78
[2024-08-22 23:47] VITALS: BP 128/91
[2024-08-23 05:34] LABS: % Basophils 0.8 % (0-2); % Eosinophils 3.5 % (0-6); % Immature Granulocytes 0.6 % (0-0.5); % Lymphocytes 32.6 % (20.5-51.1); % Monocytes 8.3 % (1.7-9.3); % Neutrophils 54.2 % (42.2-75.2); Absolute Eosinophils 0.2 10^3/uL (0-0.7); Absolute Lymphocytes 1.7 10^3/uL (1.2-3.4); Absolute Monocytes 0.4 10^3/uL (0.1-0.6); Absolute Neutrophils 2.8 10^3/uL (1.4-6.5); Hematocrit 34.7 % (37.0-47.0); Hemoglobin 11.1 g/dL (12.0-16.0); Mean Corpuscular Hgb 26.6 pg (27.0-31.0); Mean Platelet Volume 11.2 fL (7.4-10.4); Nucleated Red Blood Cells % 0 %; Platelet Count 236 10^3/uL (130-400); Red Blood Cell Count 4.18 10^6/uL (4.20-5.40); White Blood Cell Count 5.2 10^3/uL (4.8-10.8)
[2024-08-23 06:09] LABS: AST (SGOT) 239 U/L (14-36); Albumin 3.5 g/dl (3.5-5.0); Alkaline Phosphatase 138 U/L (38-126); Blood Urea Nitrogen 12 mg/dl (7-17); Calcium 9.2 mg/dl (8.4-10.2); Carbon Dioxide 29 mmol/L (22-30); Chloride 102 mmol/L (98-107); Estimated Creatinine Clearance 119 ml/min; Glucose 103 mg/dl (70-99); Potassium 4.3 mmol/L (3.5-5.1); Sodium 137 mmol/L (135-145); Total Bilirubin 1.1 mg/dl (0.2-1.3); Total Protein 5.9 g/dl (6.3-8.2); eGFR > 60.00
[2024-08-23 06:19] LABS: ALT (SGPT) 839 U/L (0-35)
[2024-08-23 07:10] VITALS: BP 121/82
[2024-08-23] MEDS: PEPCID 40 MG PO (08:41)
[2024-08-23] MEDS: MYLICON 80 MG PO (08:44)
[2024-08-23] MEDS: ULTRAM 50 MG PO (08:45)
--- NOTE | 2024-08-23 10:06 | W.PN.GS2 ---
Today's Communication / Plan
-
Dispo planning
Assessment / Plan
-
38 yo female presenting with choledocholithiasis
PPD #4 ERCP with sphincterotomy and stone removal, PD stent placed
POD #3 Lap esdras
Bilirubin normalized, transaminitis present (expected post op)
AFVSS
--Diet as tolerated
--Analgesics prn, multimodal analgesia
--GI follow up as OP for stent removal
--Stable for discharge from surgical standpoint
Subjective Data
-
Date of Service: August 23, 2024
Patient seen and examined at bedside with Dr. Hernandez. Denies n/v. Tolerating diet. Pain continues to improve. Feels ready to go home.
Objective Data
-
Intake and Output
08/22/24 08/23/24 08/24/24
06:59 06:59 06:59
Intake Total 2160 / 2160 1820 / 1820
Balance 2160 / 2160 1820 / 1820
Intake:
Oral fluids 1200 / 1200 1500 / 1500
IV fluids (Total) 960 / 960 320 / 320
Other:
Number of approximated MODERATE 2 2
amounts of urine
Number of approximated LARGE 2
amounts of urine
Vital Signs
Temp Pulse Resp BP Pulse Ox
97.5 F 78 16 121/82 94
08/23/24 07:10 08/23/24 07:10 08/23/24 07:10 08/23/24 07:10 08/23/24 07:10
Lab Results
08/23/24 04:39
08/23/24 04:39
Calcium 9.2 mg/dl (8.4-10.2) 08/23/24 04:39
Total Bilirubin 1.1 mg/dl (0.2-1.3) 08/23/24 04:39
AST 239 U/L (14-36) H 08/23/24 04:39
ALT 839 U/L (0-35) H* 08/23/24 04:39
Alkaline Phosphatase 138 U/L (38-126) H 08/23/24 04:39
Total Protein 5.9 g/dl (6.3-8.2) L 08/23/24 04:39
Albumin 3.5 g/dl (3.5-5.0) 08/23/24 04:39
Physical Exam
-
NAD
ABD soft, nt, tender to 12mm port site (expected)
Incisions well approximated with intact glue
[2024-08-23] MEDS: TORADOL 30 MG IV (10:41)
--- NOTE | 2024-08-23 10:56 | W.PN.HOSP.TC ---
Today's Communication/Plan
-
Outpatient abdominal x-ray and CMP
Diet tolerance
Assessment / Plan
Assessment / Plan
#Transaminitis secondary to choledocholithiasis with cholelithiasis
#Gallstone
#Hyperbilirubinemia
#Post op right upper quadrant abdominal pain.
Improvement in bilirubin. AST ALT elevated.
Status post ERCP with positive CBD stone status post enterotomy and stone extraction status post PD stent placement. Outpatient GI follow-up with a abdominal x-ray
Status post laparoscopic cholecystectomy on 08/20. Operative finding of physiologically distended gallbladder. Filmy omental adhesions.
Status post IV fluids.
Tolerating diet.
Lipase normal at 92.
Continue to trend CMP
Pain control
Continue to monitor for p.o. intake tolerance. Pain control.
Surgery recs.
DVT prophylaxis SCDs. Start chemical prophylaxis if with increase in hospitalization
Discussed with patient spouse at bedside in detail on 08/21.
Discussed with surgery
Disposition Home
More than 30 minutes spent in discharge including
Final examination of the patient
Summarizing hospital stay
Instructions for continuing care to all relevant caregivers
Preparation of discharge records, prescriptions, and referral forms
Total time spent (in minutes): 52
Anticipated Discharge: Today
Subjective/Interval History
-
Date of Service: August 23, 2024
States improvement in abdominal pain with pain medication
States abdominal pain at specific site
Denies any nausea or vomiting
Tolerating diet
Objective Data
-
Labs:
Laboratory Results
08/23/24
04:39
WBC 5.2
Hgb 11.1 L
Hct 34.7 L
Plt Count 236
Sodium 137
Potassium 4.3
Chloride 102
Carbon Dioxide 29
BUN 12
Creatinine 0.7
Glucose 103 H
Calcium 9.2
Total Bilirubin 1.1
AST 239 H
ALT 839 H*
Alkaline Phosphatase 138 H
Vital Signs:
Vital Signs
Temp Pulse Resp BP Pulse Ox
97.5 F 78 16 121/82 94
08/23/24 07:10 08/23/24 07:10 08/23/24 07:10 08/23/24 07:10 08/23/24 07:10
I&O
08/22/24 08/23/24 08/24/24
06:59 06:59 06:59
Intake Total 2159 / 0 1819
Balance 0 / 2160 1819
Physical Exam
-
General: Well Developed and No Apparent Distress
HEENT: Normocephalic, Atraumatic and Moist Mucous Membranes
Respiratory: Clear to Auscultation
Cardiac: Regular Rhythm and S1/S2; Negative Murmur, Rub or Gallop
GI: Soft, Nondistended, Normal Bowel Sounds, Tender (Right upper quadrant) and Other (Surgical glue noted. No erythema or drainage note.); Negative Organomegaly
Rectal: Deferred by Provider
Musculoskeletal: No Clubbing, No Cyanosis and No Edema
Skin: Negative Rash
Neuro: Awake, Alert, Oriented, AO x 3, No Motor Deficits and Nonfocal/Grossly Intact
Psych: Calm
--- NOTE | 2024-08-23 10:57 | W.DCSUMMARY ---
Discharge Summary
Discharge Data
Date of Admission: 08/19/24
Date of Discharge: 08/23/24
-
Pending Results: No
Hospital Course
38-year-old female with no past medical history was presented to hospital with complaint of abdominal pain. Patient was found to severe transaminitis. Patient was evaluated by gastroenterology and general surgery. Patient was found to
choledocholithiasis status post ERCP with PD stent. Postop patient was eval by general surgery and patient underwent laparoscopic cholecystectomy. Postsurgery patient with persistent right upper quadrant abdominal pain which was same secondary to
adhesions prior to surgery. Patient was started on IV fluids. Diet was slowly advanced from liquids to low-fat. Patient was tolerating diet without any nausea or vomiting. Ambulating without difficulty. Recommend to follow-up outpatient with
gastroenterology for PD stent management and general surgery for postop follow-up.
Discharge Plan
-
Patient Disposition: Home (Routine Discharge)
Discharge Diagnosis/Procedures: #Transaminitis secondary to choledocholithiasis with cholelithiasis status post ERCP with PD stent status post laparoscopic cholecystectomy
#Gallstones
#Hyperbilirubinemia
# Post op right upper quadrant abdominal pain.
Condition: Fair
Diet: Low Fat
Activity: No strenuous activity
Driving Restrictions: No driving for 24 hours
Bathing Restrictions: OK to Shower
Blood Work: CMP in5-7 days via primary doctor
Others Tests: XRay in 2 weeks via primary doctor or [facility]
Activity Restrictions/Additional Instructions:
�Alpesh Swanson MD [facility] General Surgery
[facility]
[address], [address]
[place] [address]
[phone]
Post-Operative Instructions for Gallbladder Surgery
The incision sites are sealed with a surgical glue dressing.� It is safe to shower at any time after surgery when the glue is dry.� Let shower water run over the incisions and then pat dry.
Glue dressing typically peels off in 2-3 weeks.
Abdominal/incisional pain and discomfort, shoulder/scapular pain, bloating, and mild nausea, as well as bruising/stiffness and swelling at the incision sites are common after surgery.� If felt to be excessive, notify us.
Please start postoperative pain management using over the counter medications such as Tylenol and Ibuprofen, per instructions on the bottle, as long as there are no medical reasons why you cannot take these medications.
Ice the incisions sites for 20 minutes every hour or so to help with postoperative incisional pain and reduce postoperative surgical site swelling.� Take care NOT to get an ice burn on the skin surface.
A warm heating pad is often helpful to alleviate shoulder/scapular back pains after laparoscopic procedures.� This pain typically dissipates 24-72hrs post op.
Transition to a low fat diet as tolerated after surgery if not experiencing postoperative nausea or significant bloating/distention.� Some fatty food intolerance may occur shortly after surgery (cramps,bloating, nausea,diarrhea with fat intake).
Constipation is common following surgery and postoperative narcotic use.� May use a stool softener such as Colace (100 mg 2x day) to prevent constipation
If no BM 24hrs after surgery, recommend starting daily Miralax
If no BM in 24-48hrs after starting Miralax --> recommend then using a dose of magnesium citrate or milk of magnesia with a Senokot tablet to help alleviate post operative constipation as long as there is no nausea/vomiting and passing gas.
Resume all preoperative medications as prescribed, unless directed otherwise.
Do not drive or drink alcohol for 24 hrs after having anesthesia or while taking narcotic pain medications.
Resume regular daily light activities, such as walking, standing and going up/down stairs as tolerated within 24hrs of surgery.� Please refrain from lifting over 20 lbs or strenuous exercise until postoperative follow up visit &/or approximately
3-4 weeks.�
Call the office with a fever above 101� F, nausea with vomiting, severe abdominal pain, yellowing of skin or eyes, spreading redness and drainage from incision sites or with any concerns/questions.
If not arranged prior to surgery, please call the office to schedule or confirm your 2 week� postoperative surgical follow-up office visit with Dr. Swanson.
Referrals:
Neal Slaughter MD [Family Provider] - in less than 1 week
Jose Galindo MD [Active] - in four to six weeks
()
Joesph Kurtz MD [Active] - in one to two months (kidney stone follow up)
Alpesh Swanson MD [Active] - in two to four weeks
Prescriptions:
New
famotidine 40 mg Tablet
40 mg PO DAILY 7 Days Qty: 7 0RF
tramadol 50 mg Tablet
50 mg PO TIDPRN PRN (Reason: severe pain) Qty: 15 0RF
ibuprofen 400 mg tablet
400 mg PO Q8H PRN (Reason: Pain) Qty: 14 0RF
Discharge Orders:
Discharge Patient (As Directed); Ordered 08/23/24
Ordered By: Edwin Shook
Discharge Date and Time
Print Language: ITALIAN
--- NOTE | 2024-08-23 11:23 | CM ---
Pt for discharge today
Has transportation home
Plan - home no needs
[2024-08-23] MEDS: SENOKOT-S 1 TABLET PO (12:12)
[2024-08-23] MEDS: ANESTHETIC LOZENGE 1 LOZENGE PO (12:12)
[2024-08-23] MEDS: MIRALAX 17 GRAMS PO (12:12)
[2024-08-23 12:30] VITALS: BP 120/80
== END 2024-08-23 14:04 | disposition home or self-care (01) | DRG 419 ==
LOC: 2 SOUTH 16:12
PROVIDERS: Internal Medicine Gastroenterology; Nurse Practitioner Family; Physician Assistant; Surgery; ADMITTING PHYSICIAN Hospitalist; ATTENDING PHYSICIAN Hospitalist; CONSULT PHYSICIAN Surgery; EMERGENCY PHYSICIAN Emergency Medicine; FAMILY PHYSICIAN Internal Medicine; OTHER PHYSICIAN Internal Medicine
PROC: BF43ZZZ Ultrasonography of Gallbladder and Bile Ducts (ICD-10-PCS; 2024-08-19)
PROC: 0F7D8DZ Dilation of Pancreatic Duct with Intraluminal Device, Via Natural or Artificial Opening Endoscopic (ICD-10-PCS; 2024-08-19)
PROC: 0FC98ZZ Extirpation of Matter from Common Bile Duct, Via Natural or Artificial Opening Endoscopic (ICD-10-PCS; 2024-08-19)
PROC: 0FT44ZZ Resection of Gallbladder, Percutaneous Endoscopic Approach (ICD-10-PCS; 2024-08-20)
DX: K80.62 Calculus of gallbladder and bile duct with acute cholecystitis without obstruction (principal); N20.0 Calculus of kidney; Z87.891 Personal history of nicotine dependence; Z88.1 Allergy status to other antibiotic agents; Z88.0 Allergy status to penicillin
CPT/HCPCS: 88304; 74330; 76000; 76700; 80053; 83690; 84703; 85025; 85027; 96374; 96375; 99284; C1769

== ENCOUNTER → 2024-09-07 12:21 | Outpatient (REF) | payer OTHER, SELFPAY | LOC: HWRAD 12:21 | PROVIDERS: ATTENDING PHYSICIAN Internal Medicine | DX: Z90.49 Acquired absence of other specified parts of digestive tract (principal) | CPT/HCPCS: 74018 ==

== ENCOUNTER 2024-10-22 06:20 | Day surgery (SDC) | payer OTHER, SELFPAY ==
[2024-10-22 08:40] VITALS: BMI 32.5
[2024-10-22 08:50] VITALS: BP 114/81
[2024-10-22 09:00] VITALS: BMI 32.5
[2024-10-22] MEDS: NORMOSOL-R/PLASMALYTE-A 1000 IV (09:15)
[2024-10-22 10:55] VITALS: BP 114/81; BP 116/81
[2024-10-22 11:05] VITALS: BP 99/75
[2024-10-22] MEDS: Pyridium 200 MG PO (11:18)
[2024-10-22 11:20] VITALS: BP 105/70
[2024-10-22 11:30] VITALS: BP 113/80
[2024-10-22 11:50] VITALS: BP 115/68
== END 2024-10-22 12:02 | disposition home or self-care (01) ==
LOC: SDS 06:20
PROVIDERS: ATTENDING PHYSICIAN Urology
DX: N20.0 Calculus of kidney (principal)
CPT/HCPCS: 52356; 74018; 76000; 82365; A4300; C1769; C1894; C2617

== ENCOUNTER 2024-12-23 06:28 | Day surgery (SDC) | payer OTHER, SELFPAY | END 2024-12-23 12:17 | disposition home or self-care (01) | LOC: GI 06:28 | PROVIDERS: ATTENDING PHYSICIAN Internal Medicine | DX: Z12.11 Encounter for screening for malignant neoplasm of colon (principal); K64.8 Other hemorrhoids; K58.9 Irritable bowel syndrome, unspecified; D12.3 Benign neoplasm of transverse colon; K63.5 Polyp of colon; K62.1 Rectal polyp; Z83.719 Family history of colon polyps, unspecified | CPT/HCPCS: 45385; 45380; 88305 ==